=== PATIENT | female | born 1970 | race Caucasian/White ===

== ENCOUNTER → 2016-04-29 | Outpatient (CLI) | payer OTHER ==
[~2016-04-29] MED LIST: BACTRIM DS 8001 TA1 PO; CIPRO500 MG PO; KEFLEX500 MG PO; ZOFRAN ODT4 MG SL
== END ==
LOC: MAMMO 09:57
DX: Z12.31 Encounter for screening mammogram for malignant neoplasm of breast (principal)

== ENCOUNTER 2017-01-13 13:33 | Emergency (ER) | payer OTHER ==
[~2017-01-13] VITALS: Ht 170.1 cm; Wt 81.7 kg
[2017-01-13 14:21] LABS: HEMATOCRIT 39.4 % (37.0-47.0); HEMOGLOBIN 13.5 g/dl (12.0-16.0); MEAN CELL VOLUME 95.6 fl (81.0-99.0); MEAN CORPUSCULAR HGB 32.8 pg (27.0-31.0); MEAN CORPUSCULAR HGB CONC 34.3 g/dl (33.0-37.0); MEAN PLATELET VOLUME 9.7 fl (9.6-12.3); PLATELET COUNT AUTOMATED 218 10*3/uL (130-400); RED BLOOD COUNT 4.12 10*6/uL (4.10-5.10); RED CELL DISTRI WIDTH 12.8 % (0-14.5); WHITE BLOOD COUNT 4.4 10*3/uL (4.8-10.8)
[2017-01-13 14:35] LABS: ALBUMIN 3.5 gm/dl (3.1-4.5); ALKALINE PHOSPHATASE 74 U/L (45-117); BUN 8 mg/dl (7-24); CHLORIDE 104 mmol/L (98-107); CREATININE 0.99 mg/dL (0.55-1.02); LIPASE 106 U/L (73-393); POTASSIUM 3.7 mmol/L (3.5-5.1); SGOT/AST 50 IU/L (3-35); SGPT/ALT 79 U/L (12-78); SODIUM 141 mmol/L (136-145); TOTAL PROTEIN 7.5 gm/dL (6.4-8.2)
[2017-01-13 14:42] LABS: ATYPICAL LYMPHS 3 % (0-0); PLATELET SUFFICIENCY NORMAL (NORMAL); TOTAL CELLS COUNTED 100 #CELLS
[2017-01-13 14:48] LABS: BILIRUBIN 1+ (NEGATIVE); BLOOD 3+ (NEGATIVE); CLARITY CLOUDY (CLEAR); COLOR YELLOW (YELLOW); GLUCOSE NEGATIVE (NEGATIVE); KETONE TRACE (NEGATIVE); LEUKO ESTERASE NEGATIVE (NEGATIVE); NITRITE NEGATIVE (NEGATIVE); PH 5.5 (5.0-9.0); SPECIFIC GRAVITY >= 1.030 (1.005-1.030); UROBILINOGEN 0.2 E.U./dl (0.2-1.0)
[2017-01-13 14:56] LABS: BACTERIA 4+; EPITHELIAL CELLS 16-20; WBC 21-30 wbc/hpf (0-5)
[2017-01-13] MEDS ORDERED: LOMOTIL 2.5-0.1 EACH PO (15:15)
== END 2017-01-13 16:01 | disposition home or self-care (01) ==
LOC: ED 13:33
PROVIDERS: Nurse Practitioner Family
DX: R19.7 Diarrhea, unspecified (principal); Z90.49 Acquired absence of other specified parts of digestive tract

== ENCOUNTER → 2017-12-13 | Outpatient (CLI) | payer OTHER ==
[~2017-12-13] MED LIST changes: +LOMOTIL 2.5-0.1 EACH PO
== END | disposition home or self-care (01) ==
LOC: CARD 14:42
DX: R07.9 Chest pain, unspecified (principal)

== ENCOUNTER → 2018-01-06 | Outpatient (CLI) | payer OTHER ==
--- NOTE | ~2018-01-06 | ST ---
[place], [place] EXERCISE STRESS TEST REPORT [id number] UNIT #: [id number] ROOM: DOCTOR: CARMEN ESACLANTE MD BIRTHDATE: [birth year] DOS: 01/06/2018 EXERCISE NUCLEAR STRESS TEST INDICATIONS: Chest pain. PROCEDURE: The patient exercised on a full Aron protocol for 7 minutes 40 seconds and stopped for fatigue. She achieved a maximum heart rate of 159 at a workload of 10 mets. She did not have any chest pain with exercise. The resting electrocardiogram was normal. With exercise, her blood pressure kevon from 120/78 to 154/78. She did develop about [address] segment depression in the inferior leads that resolved within 30 seconds of recovery. Electrocardiographically this was an equivocal response, but clinically the response was low risk. Her Britt Treadmill Score was 2.7 consistent with an intermediate risk for future events. One minute prior to completion of the exercise protocol, the patient was given radionuclide intravenously. IMPRESSIONS: 1. Good exercise capacity without chest pain. The patient did have transient EKG changes that resolved early in recovery. 2. Radionuclide administered. Please see the separate imaging report for further details of the patient's stress test results. CARMEN ESCALANTE MD CM:STRESS:EXERCISE STRESS TEST REPORT [id number] CARMEN ESCALANTE MD
== END | disposition home or self-care (01) ==
LOC: CARD 01:37
DX: I31.3 Pericardial effusion (noninflammatory) (principal); I77.810 Thoracic aortic ectasia

== ENCOUNTER → 2018-01-17 | Outpatient (CLI) | payer OTHER | END | disposition home or self-care (01) | LOC: LAB 13:17 | DX: I31.3 Pericardial effusion (noninflammatory) (principal); R07.2 Precordial pain ==

== ENCOUNTER → 2018-02-10 | Outpatient (CLI) | payer OTHER | END | disposition home or self-care (01) | LOC: RAD 11:18 | DX: M51.36 Other intervertebral disc degeneration, lumbar region (principal); M50.322 Other cervical disc degeneration at C5-C6 level ==

== ENCOUNTER 2019-09-21 12:45 | Inpatient (IN) | payer OTHER ==
[~2019-09-21] VITALS: Ht 170.2 cm; Wt 83.5 kg
[2019-09-21 12:49] VITALS: BP 149/99
[2019-09-21 13:34] LABS: BILIRUBIN NEGATIVE (NEGATIVE); BLOOD TRACE-LYSED (NEGATIVE); CLARITY CLOUDY (CLEAR); COLOR YELLOW (YELLOW); GLUCOSE NEGATIVE (NEGATIVE); KETONE NEGATIVE (NEGATIVE); LEUKO ESTERASE NEGATIVE (NEGATIVE); NITRITE POSITIVE (NEGATIVE); UROBILINOGEN 0.2 E.U./dl (0.2-1.0)
[2019-09-21 13:40] LABS: BACTERIA 4+
[2019-09-21 16:17] VITALS: BP 134/79
[2019-09-21 16:21] LABS: BASO % 0.3 % (0.0-1.0); EOS % 0.1 % (1.0-4.0); HEMATOCRIT 36.6 % (37.0-47.0); LYMPH # 0.8 10*3/uL (1.3-4.4); LYMPH % 7.8 % (27.0-41.0); MEAN CELL VOLUME 100.8 fl (81.0-99.0); MEAN CORPUSCULAR HGB 34.2 pg (27.0-31.0); MEAN CORPUSCULAR HGB CONC 33.9 g/dl (33.0-37.0); MEAN PLATELET VOLUME 9.4 fl (9.6-12.3); MONO # 0.3 10*3/uL (0.1-1.0); MONO % 3.2 % (3.0-9.0); NEUT # 9.5 10*3/uL (2.3-7.9); NEUT % 88.2 % (47.0-73.0); PLATELET COUNT AUTOMATED 275 10*3/uL (130-400); RED BLOOD COUNT 3.63 10*6/uL (4.10-5.10); RED CELL DISTRI WIDTH 12.9 % (0-14.5); WHITE BLOOD COUNT 10.7 10*3/uL (4.8-10.8)
[2019-09-21 16:39] LABS: ALBUMIN 3.6 gm/dl (3.1-4.5); ALKALINE PHOSPHATASE 56 U/L (45-117); BUN 15 mg/dl (7-24); CHLORIDE 108 mmol/L (98-107); CREATININE 0.56 mg/dL (0.55-1.02); POTASSIUM 3.5 mmol/L (3.5-5.1); SGOT/AST 18 IU/L (3-35); SGPT/ALT 33 U/L (12-78); SODIUM 137 mmol/L (136-145); TOTAL PROTEIN 6.9 gm/dL (6.4-8.2)
[2019-09-21 20:45] VITALS: BP 144/81
[2019-09-22] VITALS: BP 124/68
[2019-09-22 05:59] LABS: BASO % 0.5 % (0.0-1.0); EOS # 0.2 10*3/uL (0.0-0.4); EOS % 2.4 % (1.0-4.0); HEMATOCRIT 32.1 % (37.0-47.0); LYMPH # 1.7 10*3/uL (1.3-4.4); LYMPH % 25.3 % (27.0-41.0); MEAN CELL VOLUME 100.6 fl (81.0-99.0); MEAN CORPUSCULAR HGB 33.9 pg (27.0-31.0); MEAN CORPUSCULAR HGB CONC 33.6 g/dl (33.0-37.0); MEAN PLATELET VOLUME 9.5 fl (9.6-12.3); MONO # 0.5 10*3/uL (0.1-1.0); MONO % 8.1 % (3.0-9.0); NEUT # 4.2 10*3/uL (2.3-7.9); NEUT % 63.4 % (47.0-73.0); PLATELET COUNT AUTOMATED 220 10*3/uL (130-400); RED BLOOD COUNT 3.19 10*6/uL (4.10-5.10); RED CELL DISTRI WIDTH 13.2 % (0-14.5); WHITE BLOOD COUNT 6.6 10*3/uL (4.8-10.8)
[2019-09-22 06:26] LABS: ALBUMIN 2.9 gm/dl (3.1-4.5); BUN 13 mg/dl (7-24); CHLORIDE 111 mmol/L (98-107); CHOLESTEROL 157 mg/dL (<200); POTASSIUM 3.3 mmol/L (3.5-5.1); SGOT/AST 14 IU/L (3-35); SGPT/ALT 25 U/L (12-78); SODIUM 141 mmol/L (136-145); TOTAL PROTEIN 5.7 gm/dL (6.4-8.2); TRIGLYCERIDES 88 mg/dl (<150); VLDL CHOLESTEROL 18 mg/dL (6-40)
[2019-09-22 06:33] LABS: ALKALINE PHOSPHATASE 46 U/L (45-117); HDL CHOLESTEROL 62 mg/dl (40-60); LDL CHOLESTEROL 77 mg/dL (9-159)
[2019-09-22 07:52] LABS: VITAMIN D, 25-HYDROXY 29.3 ng/mL (30-100)
[2019-09-22 08:00] VITALS: BP 118/76
[2019-09-22 12:00] VITALS: BP 138/82
[2019-09-22 16:00] VITALS: BP 130/91
[2019-09-22 20:00] VITALS: BP 123/75
[2019-09-23] VITALS: BP 103/49
[2019-09-23 08:00] VITALS: BP 124/79
[2019-09-23] MEDS ORDERED: NORCO 5-325 TA1 EACH PO (11:24)
[2019-09-23] MEDS ORDERED: ZOFRAN4 MG PO (11:24)
[2019-09-23] MEDS ORDERED: LEVAQUIN750 M1 PO (11:24)
== END 2019-09-23 12:13 | disposition home or self-care (01) | DRG 690 ==
LOC: ED 12:45 → EDHOLD 19:28 → 5E 20:31
PROVIDERS: Emergency Medicine; Internal Medicine; ADMIT Emergency Medicine
DX: N10 Acute pyelonephritis (principal); E87.8 Other disorders of electrolyte and fluid balance, not elsewhere classified; M54.9 Dorsalgia, unspecified; D25.9 Leiomyoma of uterus, unspecified; B96.20 Unspecified Escherichia coli [E. coli] as the cause of diseases classified elsewhere

== ENCOUNTER → 2020-06-12 | Outpatient (CLI) | payer OTHER ==
[~2020-06-12] MED LIST changes: +LEVAQUIN750 M1 PO; +NORCO 5-325 TA1 EACH PO; +ZOFRAN4 MG PO
== END | disposition home or self-care (01) ==
LOC: MAMMO 09:44
PROVIDERS: ATTEND Nurse Practitioner Women's Health
DX: Z12.31 Encounter for screening mammogram for malignant neoplasm of breast (principal); N64.89 Other specified disorders of breast

== ENCOUNTER 2022-09-01 05:44 | Emergency (ER) | payer OTHER ==
[~2022-09-01] VITALS: Ht 170.1 cm; Wt 81.6 kg
[2022-09-01] MEDS ORDERED: CEPHALEXIN500 M1 PO (06:05)
== END 2022-09-01 06:13 | disposition home or self-care (01) ==
LOC: ED 05:44
DX: L03.114 Cellulitis of left upper limb (principal); Z98.51 Tubal ligation status; Z98.890 Other specified postprocedural states; Z90.49 Acquired absence of other specified parts of digestive tract